=== PATIENT | male | born 1990 | race Caucasian/White ===

== ENCOUNTER → 2016-05-30 | Day surgery (SDC) | payer OTHER ==
[~2016-05-30] VITALS: Ht 177.8 cm; Wt 81.6 kg
[~2016-05-30] MED LIST: BUPIVACAINE LIPOSOME/PF 1.3% 20ML (266MG/20ML) VIAL (EXPAREL) As Ordered ONE; BUPIVACAINE LIPOSOME/PF 1.3% 20ML (266MG/20ML) VIAL (EXPAREL) XX ONE; BUPIVACAINE/EPIN 0.25% 30 ML VIAL As Ordered ONE; BUPIVACAINE/EPIN 0.25% 30 ML VIAL XX ONE; LIDOCAINE 2% INJ 100 MG/5 ML SDV (FOR ANES.) As Ordered ONE; LR 1,000 ML IV SCH; METOCLOPRAMIDE INJ 10MG/2ML VIAL (J2765) IV PRN; MIDAZOLAM INJ 2 MG/2 ML VIAL (J2250) As Ordered ONE; MORPHINE 2 MG/ML 1ML SYRINGE IV PRN; ONDANSETRON 4MG/2ML VIAL (J2405) As Ordered ONE; ONDANSETRON 4MG/2ML VIAL (J2405) IV PRN; PROPOFOL 200 MG/20 ML VIAL As Ordered ONE; ROCURONIUM BROMIDE 50 MG/5 ML VIAL As Ordered ONE; ceFAZolin SOD 1 GM in D5W MINI-BAG PLUS 50 ML IV ONE; fentaNYL 100 MCG/2 ML INJECTION (J3010) As Ordered ONE
[2016-05-30] MEDS: fentaNYL 100 MCG/2 ML INJECTION (J3010) IV PRN ×4 (10:06→10:24)
--- NOTE | 2016-05-30 10:08 | RO ---
DATE OF PROCEDURE: 05/30/2016 PREOPERATIVE DIAGNOSIS: Umbilical hernia. POSTOPERATIVE DIAGNOSIS: Incarcerated umbilical hernia. PROCEDURE: Repair of incarcerated umbilical hernia. SURGEON: Dr. Anton De Jesus [employer]: ANESTHESIA: General endotracheal anesthesia. ESTIMATED BLOOD LOSS: Minimal. FLUIDS: Crystalloid. PROCEDURE SUMMARY: The patient was brought to the operating room and was given general anesthesia. After adequate anesthesia and preoperative antibiotics were given, the patient was prepped and draped in the usual sterile fashion. Next, a supraumbilical incision was made with skin knife. Electrocautery was used cut through dermis and underlying subcutaneous tissue down to the hernia sac itself. The hernia sac was mobilized circumferentially at the level of the umbilicus and the hernia was transected at the level of fascia. This was all preperitoneal fat that was in this area and it was transected and sent to pathology. The peritoneum itself was not entered. The patient's posterior aspect of the umbilicus was tightly adherent to the umbilical hernia and thus this was able to be taken off the umbilicus without significant difficulty and with some minimal blunt dissection. However, this needed to be tacked back down after closure of the fascial defect. The fascial defect itself was only about 1 cm at most and was closed with two [id number] Ethilon sutures and then #3-0 Vicryl was used to tack the umbilicus to the fascia and then the incision was closed in two layers with #3-0 Vicryl dermal layer and #4-0 Vicryl subcuticular. Steri-Strips and a dry sterile dressing was applied. The patient was awakened, extubated, and brought to the recovery room awake, alert and hemodynamically stable. Sponge and needle counts were correct times two.
[2016-05-30] MEDS: PERCOCET 5MG/325MG TAB PO PRN ×2 (10:50→11:30)
[2016-05-30 12:10] VITALS: BP 120/78
== END ==
LOC: M SDC 06:53
PROVIDERS: ATTEND Surgery
DX: K42.0 Umbilical hernia with obstruction, without gangrene (principal)
CPT/HCPCS: 49587; 88302; J0690; J2250; J2405; J3010

== ENCOUNTER 2018-08-29 10:56 | Emergency (ER) | payer OTHER ==
[~2018-08-29] VITALS: Ht 180.3 cm; Wt 80.9 kg
[2018-08-29] MEDS ORDERED: IBUPROFEN 800 MG TAB PO ONE (11:45)
[2018-08-29 12:10] LABS: INFLUENZA A AMPLIFICATION NEGATIVE (NEGATIVE); INFLUENZA B AMPLIFICATION NEGATIVE (NEGATIVE)
[2018-08-29] MEDS ORDERED: NS 1,000 ML IV ONE (12:15)
[2018-08-29 12:35] LABS: HEMATOCRIT 40.4 % (42.0-52.0); HEMOGLOBIN 13.6 g/dl (13.5-17.5); MEAN CORPUSCULAR HEMOGLOBIN 28.3 pg (27.0-33.0); MEAN CORPUSCULAR HGB CONC 33.7 g/dl (32.0-36.5); MEAN CORPUSCULAR VOLUME 84.2 fl (80.0-96.0); PLATELET COUNT, AUTOMATED 248 10^3/uL (150-450); WHITE BLOOD COUNT 9.4 10^3/uL (4.0-10.0)
--- NOTE | 2018-08-29 12:44 | REP ---
Chest two views HISTORY: Cough Comparison: None Patchy density is present in the right lower lobe consistent with an infiltrate. The left lung is clear. The heart is normal in size. The pulmonary vasculature is normal in appearance. The bony structure is intact. IMPRESSION: Right lower lobe infiltrate. Electronically Signed by Johnny Hancock MD 08/29/2018 12:35 P
[2018-08-29] MEDS ORDERED: cefTRIAXone SOD 1 GM in D5W MINI-BAG PLUS 50 ML IV ONE (13:00)
[2018-08-29 13:07] LABS: ALBUMIN 4.2 GM/DL (3.2-5.2); ALT/SGPT 21 U/L (12-78); AMYLASE 38 U/L (25-115); BILIRUBIN,DIRECT 0.2 MG/DL (0.0-0.2); BILIRUBIN,TOTAL 0.7 MG/DL (0.2-1.0); BLOOD UREA NITROGEN 10 MG/DL (7-18); CARBON DIOXIDE LEVEL 26 MEQ/L (21-32); CHLORIDE LEVEL 103 MEQ/L (98-107); CREATININE FOR GFR 1.16 MG/DL (0.70-1.30); GLOMERULAR FILTRATION RATE > 60.0 (>60); GLUCOSE, FASTING 95 MG/DL (70-100); LIPASE 117 U/L (73-393); POTASSIUM SERUM 4.4 MEQ/L (3.5-5.1); SODIUM LEVEL 136 MEQ/L (136-145); TOTAL PROTEIN 7.6 GM/DL (6.4-8.2)
[2018-08-29] MEDS ORDERED: ZITH250T PO (13:22)
[2018-08-29 14:19] VITALS: BP 122/66
== END 2018-08-29 14:23 | disposition home or self-care (01) ==
LOC: M ED 10:56
DX: J18.9 Pneumonia, unspecified organism (principal)
CPT/HCPCS: 36415; 71046; 80048; 80076; 81001; 82150; 83690; 85027; 87631; 96361; 96365; 99284; J0696